=== PATIENT | male | born 1970 | race African-American/Black ===

== ENCOUNTER 2019-05-27 15:48 | Inpatient (IN) | payer OTHER ==
[2019-05-27 17:10] VITALS: BMI 36.4
--- NOTE | 2019-05-27 20:17 | HP ---
COWS - Scale Resting Pulse: 1= [place] 81-100 Sweatin= Chills/Flushing Restless Observation: 0= Sits Still Pupil Size: 0= Normal to Room Light Bone or Joint Aches: 1= Mild Discomfort Runny Nose/ Eye Tearin= Runny Nose/Eyes GI Upset > 30mins: 0= None Tremor Observation: 2= Slight Tremor Visible Yawning Observation: 1= 1-2x During Session Anxiety or Irritability: 2=Irritable/Anxious Goose Flesh Skin: 3=Piloerection COWS Score: 13 CIWA Score - Admission Criteria [facility] Guidelines: Admission for Medically Managed Detox: Requires at least one of the followin. CIWA greater than 12 2. Seizures within the past 24 hours 3. Delirium tremens within the past 24 hours 4. Hallucinations within the past 24 hours 5. Acute intervention needed for co occurring medical disorder 6. Acute intervention needed for co occurring psychiatric disorder 7. Severe withdrawal that cannot be handled at a lower level of care (continued vomiting, continued diarrhea, abnormal vital signs) requiring intravenous medication and/or fluids 8. Admission ROS [facility] - [facility] Chief Complaint: here for heroin detox Allergies/Adverse Reactions: Allergies Allergy/AdvReac Type Severity Reaction Status Date / Time Penicillins AdvReac Severe Swelling Verified 05/27/19 16:52 History of Present Illness: y.o. a.a. male here for heroin detox. client is referred by [facility] after presenting there seeking detox. This is clients first admission here. states last detox 3 months ago. relapsing 1 month ago. he reports daily heroin use via nasal. last use 1 day ago. denies hx/o drug overdose, black outs , sz d/o. homeless, unemployed, denies legals Exam Limitations: No Limitations - Ebola screening Have you traveled outside of the country in the last 21 days: No (N) Have you had contact with anyone from an Ebola affected area: No Do you have a fever: No - Review of Systems Constitutional: Chills, Night Sweats EENT: reports: Dental Problems (missing teeth), Other (rinorrhea) Respiratory: reports: Shortness of Breath Cardiac: reports: Edema (lle) GI: reports: No Symptoms Reported : reports: No Symptoms Reported Musculoskeletal: reports: Back Pain Integumentary: reports: Dryness Neuro: reports: Headache, Numbness (ble) Endocrine: reports: No Symptoms Reported Hematology: reports: No Symptoms Reported Psychiatric: reports: Orientated x3, Anxious, Depressed (denies si) Other Systems: Reviewed and Negative Patient History - Patient Medical History Hx Anemia: No Hx Asthma: No Hx Chronic Obstructive Pulmonary Disease (COPD): No Hx Cancer: No Hx Cardiac Disorders: No Hx Congestive Heart Failure: No Hx Hypertension: No Hx Hypercholesterolemia: Yes (no meds) Hx Pacemaker: No HX Cerebrovascular Accident: No Hx Seizures: No Hx Dementia: No Hx Diabetes: No Hx Gastrointestinal Disorders: No Hx Liver Disease: No Hx Genitourinary Disorders: No Hx Sexually Transmitted Disorders: No Hx Renal Disease (ESRD): No Hx Thyroid Disease: No Hx Human Immunodeficiency Virus (HIV): No Hx Hepatitis C: No Hx Depression: Yes Hx Suicide Attempt: No Hx Bipolar Disorder: No Hx Schizophrenia: No Other Medical History: denies - Patient Surgical History Past Surgical History: No - PPD History Previous Implant?: Yes Documented Results: Negative w/o proof Implanted On Prior [facility] Admission?: No PPD to be Administered?: Yes - Smoking Cessation Smoking history: Never smoked Initiated information on smoking cessation: No - Substance & Tx. History Hx Substance Use: Yes Substance Use Type: Heroin Hx Substance Use Treatment: Yes (elev 8) - Substances abused Heroin Substance route: Inhalation Frequency: Daily Amount used: 5 bags Age of first use: 28 Date of last use: 05/26/19 Admission Physical Exam BHS - Vital Signs Vital Signs: Vital Signs - 24 hr 05/27/19 05/27/19 16:46 17:30 Temperature 98.2 F 98.2 F Pulse Rate 81 81 Respiratory 18 18 Rate Blood Pressure 112/73 112/73 - Physical General Appearance: Yes: Mild Distress, Tremorous (felt), Anxious HEENTM: Yes: EOMI, Normocephalic, Normal Voice, KRISTI, Pharynx Normal, Other ( poor dentition) Respiratory: Yes: Chest Non-Tender, Lungs Clear, Normal Breath Sounds, No Respiratory Distress, No Accessory Muscle Use Neck: Yes: No masses,lesions,Nodules, Supple, Trachea in good position Breast: Yes: Breasts Symetrical Cardiology: Yes: Regular Rhythm, Regular Rate, S1, S2, Murmur Genitourinary: Yes: Within Normal Limits Back: Yes: Normal Inspection Musculoskeletal: Yes: full range of Motion, Gait Steady Extremities: Yes: Normal Range of Motion, Non-Tender, Tremors (felt) Neurological: Yes: Fully Oriented, Alert, Motor Strength 5/5, Depressed Affect Integumentary: Yes: Dry, Warm, Pitting Edema, Other (soles of feet noted with macerated skin to rle and peeling to the lle. no openings noted. toes swollen from excessive standing/walking non tender, malodurous) Lymphatic: Yes: Within Normal Limits (bilat lle edema l >r) - Diagnostic (1) Opioid dependence with withdrawal Current Visit: Yes Status: Acute (2) Tinea pedis Current Visit: Yes Status: Acute Qualifiers: Laterality: bilateral Qualified Code(s): B35.3 - Tinea pedis (3) Bilateral lower extremity edema Current Visit: Yes Status: Chronic Comment: left greater than right- chronic (4) Homeless Current Visit: Yes Status: Suspected Comment: reported Cleared for Admission [facility] - Detox or Rehab [facility] Level of Care: Medically Managed Detox Regimen/Protocol: Methadone Claeared for Rehab Admission: No Breathalyzer - Breathalyzer Breathalyzer: 0 Urine Drug Screen - Test Device Lot number: [id number] Expiration date: 01/14/21 - Control Is test valid?: Yes - Results Drug screen NEGATIVE: No Urine drug screen results: FEN-Fentanyl, MOP-Opiates Inpatient Rehab Admission - Rehab Decision to Admit Inpatient rehab admission?: No
[2019-05-27] MEDS ORDERED: METHADONE HCL 10 MG TABLET (FOR DETOX USE ONLY) PO ONE (21:11)
[2019-05-27] MEDS ORDERED: MAGNESIUM HYDROX 2400MG/30ML ORAL SUSPENSION 30 ML CUP PO PRN (21:11)
[2019-05-27] MEDS ORDERED: hydrOXYzine PAMOATE 25 MG CAPSULE (FP) PO PRN (21:11)
[2019-05-27] MEDS ORDERED: NALOXONE HCL 0.4 MG/ML VIAL IM PRN (21:11)
[2019-05-27] MEDS ORDERED: IBUPROFEN 400 MG TABLET (FP) PO PRN (21:11)
[2019-05-27] MEDS ORDERED: ACETAMINOPHEN 325 MG TABLET (FP) PO PRN ×2 (21:11)
[2019-05-27] MEDS ORDERED: MAGNESIUM CITRATE 300 ML BOTTLE PO PRN (21:11)
[2019-05-27] MEDS ORDERED: DICYCLOMINE HCL 10 MG CAPSULE PO PRN (21:11)
[2019-05-27] MEDS ORDERED: BISMUTH SUBSALICYLATE 524 MG/30 ML UD PO PRN (21:11)
[2019-05-27] MEDS ORDERED: cloNIDine HCL 0.1 MG TABLET PO PRN (21:11)
[2019-05-27] MEDS ORDERED: guaiFENesin 200 MG/10 ML 10 ML UNIT-DOSE CUPS PO PRN (21:11)
[2019-05-27] MEDS ORDERED: MENTHOL/PHENOL 1 EACH UD MM PRN (21:11)
[2019-05-27] MEDS ORDERED: MAG HYDROX/AL HYDROX/SIMETH 30 ML UNIT-DOSE CUP PO PRN (21:11)
[2019-05-27] MEDS ORDERED: METHOCARBAMOL 500 MG TABLET PO PRN (21:11)
[2019-05-27] MEDS ORDERED: P-EPHED 60MG/TRIPROLIDI 2.5MG TABLET PO PRN (21:11)
[2019-05-27] MEDS ORDERED: ONDANSETRON *ODT* 4 MG TABLET SL PRN (21:11)
[2019-05-27] MEDS: THIAMINE HCL 100 MG TABLET (FP) PO SCH (21:45)
[2019-05-27] MEDS: TOLNAFTATE 1% CREAM 15 GM TUBE TP SCH (21:45)
[2019-05-28] MEDS ORDERED: METHADONE HCL 5 MG TABLET (FOR DETOX USE ONLY) ONE (08:21)
[2019-05-28] MEDS ORDERED: METHADONE HCL 10 MG TABLET (FOR DETOX USE ONLY) ONE (08:21)
--- NOTE | 2019-05-28 08:52 | CONSULT ---
[facility] Psychiatric Consult - Data Date of interview: 05/28/19 Admission source: [facility] Identifying data: Mr Hardin is a 49 years old single Black male, father of 4 children, unemployed receiving food stamp, homeless seeking detox treatment for opioid Substance Abuse History: Reports history of heroin use. Refer to addiction counselor's summary for further information Medical History: Significant for dyslipidemia. Psychiatric History: Denies history of previous psychiatric treatment Physical/Sexual Abuse/Trauma History: Denies history of abuse as a child or DV relationship as an adult Mental Status Exam - Mental Status Exam Alert and Oriented to: Time, Place, Person Cognitive Function: Fair Patient Appearance: Disheveled Mood: Anxious Affect: Appropriate Patient Behavior: Cooperative Speech Pattern: Clear Voice Loudness: Normal Thought Process: Intact, Goal Oriented Thought Disorder: Not Present Hallucinations: Denies Suicidal Ideation: Denies Homicidal Ideation: Denies Insight/Judgement: Poor Sleep: Well Appetite: Fair Muscle strength/Tone: Normal Gait/Station: Normal Psychiatric Findings - Problem List ([place] 1, 2,3) (1) Substance-induced anxiety disorder Current Visit: Yes Status: Acute (2) Opioid dependence with withdrawal Current Visit: Yes Status: Acute (3) Dyslipidemia Current Visit: Yes Status: Acute - Initial Treatment Plan Initial Treatment Plan: Continue inpatient detoxification
[2019-05-28] MEDS ORDERED: METHADONE (DETOX) 20 MG, METHADONE (DETOX) 5 MG PO ONE (10:00)
[2019-05-28 10:01] LABS: HEMATOCRIT 36.5 % (35.4-49); HEMOGLOBIN 12.2 GM/dL (11.7-16.9); MCH 29.7 pg (25.7-33.7); MCHC 33.4 g/dl (32.0-35.9); MEAN CELL VOLUME 88.9 fl (80-96); MEAN PLT VOLUME 7.6 fl (7.5-11.1); PLATELET COUNT 271 K/MM3 (134-434); RBC 4.11 M/mm3 (4.00-5.60); RDW 13.9 % (11.9-15.9); WHITE BLOOD COUNT 6.8 K/mm3 (4.0-10.0)
[2019-05-28] MEDS: TOLNAFTATE 1% CREAM 15 GM TUBE TP SCH ×2 (10:11→22:52)
[2019-05-28] MEDS: PRENATAL VITAMINS W/ FOLIC ACID TABLET (FP) PO SCH (10:12)
[2019-05-28 10:30] LABS: ALBUMIN 3.4 g/dl (3.4-5.0); BILIRUBIN,TOTAL 0.3 mg/dL (0.2-1); BLOOD UREA NITROGEN 13.7 mg/dL (7-18); CALCIUM 8.7 mg/dL (8.5-10.1); POTASSIUM 3.9 mmol/L (3.5-5.1); TOT PROT 6.7 g/dl (6.4-8.2)
--- NOTE | 2019-05-28 13:31 | PN ---
BHS COWS - Scale Resting Pulse: 0= [place] 80 or Below Sweatin= Chills/Flushing Restless Observation: 0= Sits Still Pupil Size: 1= Pupils >than Normal Bone or Joint Aches: 1= Mild Discomfort Runny Nose/ Eye Tearin= None GI Upset > 30mins: 2= Nausea/Diarrhea Tremor Observation of Outstretched Hands: 2= Slight Tremor Visible Yawning Observation: 0= None Anxiety or Irritability: 1=Feels Anxious/Irritable Goose Flesh Skin: 3=Piloerection COWS Score: 11 S Progress Note (SOAP) Subjective: 49 years old male admitted on 05/27/19 for opiate withdrawal sx management treating with methadone detox regimen ate breakfast resting on bed limited conversation with the staff feeling tired encourage oral fluid Objective: 05/28/19 13:28 Vital Signs Temperature 99.1 F 05/28/19 13:10 Pulse Rate 79 05/28/19 13:10 Respiratory Rate 18 05/28/19 13:10 Blood Pressure 115/70 05/28/19 13:10 O2 Sat by Pulse Oximetry (%) Laboratory Last Values WBC 6.8 K/mm3 (4.0-10.0) 05/28/19 08:00 RBC 4.11 M/mm3 (4.00-5.60) 05/28/19 08:00 Hgb 12.2 GM/dL (11.7-16.9) 05/28/19 08:00 Hct 36.5 % (35.4-49) 05/28/19 08:00 MCV 88.9 fl (80-96) 05/28/19 08:00 MCH 29.7 pg (25.7-33.7) 05/28/19 08:00 MCHC 33.4 g/dl (32.0-35.9) 05/28/19 08:00 RDW 13.9 % (11.9-15.9) 05/28/19 08:00 Plt Count 271 K/MM3 (134-434) 05/28/19 08:00 MPV 7.6 fl (7.5-11.1) 05/28/19 08:00 Sodium 141 mmol/L (136-145) 05/28/19 08:00 Potassium 3.9 mmol/L (3.5-5.1) 05/28/19 08:00 Chloride 105 mmol/L (98-107) 05/28/19 08:00 Carbon Dioxide 29 mmol/L (21-32) 05/28/19 08:00 Anion Gap 6 MMOL/L (8-16) L 05/28/19 08:00 BUN 13.7 mg/dL (7-18) 05/28/19 08:00 Creatinine 1.0 mg/dL (0.55-1.3) 05/28/19 08:00 Est GFR (CKD-EPI)AfAm 100.55 05/28/19 08:00 Est GFR (CKD-EPI)NonAf 86.76 05/28/19 08:00 Random Glucose 101 mg/dL (74-106) 05/28/19 08:00 Calcium 8.7 mg/dL (8.5-10.1) 05/28/19 08:00 Total Bilirubin 0.3 mg/dL (0.2-1) 05/28/19 08:00 AST 36 U/L (15-37) 05/28/19 08:00 ALT 64 U/L (13-61) H 05/28/19 08:00 Alkaline Phosphatase 59 U/L (45-117) 05/28/19 08:00 Total Protein 6.7 g/dl (6.4-8.2) 05/28/19 08:00 Albumin 3.4 g/dl (3.4-5.0) 05/28/19 08:00 RPR Titer Nonreactive (NONREACTIVE) 05/28/19 08:00 lab noted Assessment: 05/28/19 13:31 opiate withdrawal Plan: methadone regimen
--- NOTE | 2019-05-28 14:46 | EKG ---
Test Reason : Blood Pressure : / mmHG Vent. Rate : 078 BPM Atrial Rate : 078 BPM P-R Int : 160 ms QRS Dur : 082 ms QT Int : 354 ms P-R-T Axes : 073 073 011 degrees QTc Int : 403 ms POOR DATA QUALITY, INTERPRETATION MAY BE ADVERSELY AFFECTED NORMAL SINUS RHYTHM POSSIBLE LEFT ATRIAL ENLARGEMENT LEFT VENTRICULAR HYPERTROPHY ABNORMAL ECG NO PREVIOUS ECGS AVAILABLE Confirmed by FAUSTINO MALONEY, DOMINIC ([id number]) on 05/28/2019 2:46:24 PM Referred By: NAKUL Confirmed By:DOMINIC HARMON MD
--- NOTE | 2019-05-28 14:46 | EKG ---
Test Reason : Blood Pressure : / mmHG Vent. Rate : 072 BPM Atrial Rate : 072 BPM P-R Int : 168 ms QRS Dur : 082 ms QT Int : 366 ms P-R-T Axes : 067 064 012 degrees QTc Int : 400 ms NORMAL SINUS RHYTHM NORMAL ECG WHEN COMPARED WITH ECG OF 27-MAY-2019 22:14, NO SIGNIFICANT CHANGE WAS FOUND Confirmed by DOMINIC HARMON MD ([id number]) on 05/28/2019 2:45:51 PM Referred By: RIN Confirmed By:DOMINIC HARMON MD
[2019-05-28] MEDS: THIAMINE HCL 100 MG TABLET (FP) PO SCH (22:53)
[2019-05-29] MEDS ORDERED: METHADONE HCL 10 MG TABLET (FOR DETOX USE ONLY) PO ONE (10:00)
[2019-05-29] MEDS: PRENATAL VITAMINS W/ FOLIC ACID TABLET (FP) PO SCH (10:19)
[2019-05-29] MEDS: TOLNAFTATE 1% CREAM 15 GM TUBE TP SCH ×2 (10:20→23:05)
--- NOTE | 2019-05-29 12:00 | PN ---
BHS COWS - Scale Resting Pulse: 0= [place] 80 or Below Sweatin= No chills or Flushing Restless Observation: 1= Difficult to Sit Still Pupil Size: 1= Pupils >than Normal Bone or Joint Aches: 1= Mild Discomfort Runny Nose/ Eye Tearin= Nasal Congestion GI Upset > 30mins: 1= Stomach Cramp Tremor Observation of Outstretched Hands: 2= Slight Tremor Visible Yawning Observation: 1= 1-2x During Session Anxiety or Irritability: 2=Irritable/Anxious Goose Flesh Skin: 0=Smooth Skin COWS Score: 10 BHS Progress Note (SOAP) Subjective: alert,irritable,anxious,pain in the body,back,interrupted sleep, Objective: 05/29/19 11:58 Vital Signs Temperature 99.1 F 05/29/19 09:11 Pulse Rate 79 05/29/19 09:11 Respiratory Rate 20 05/29/19 09:11 Blood Pressure 135/79 05/29/19 09:11 O2 Sat by Pulse Oximetry (%) Laboratory Last Values WBC 6.8 K/mm3 (4.0-10.0) 05/28/19 08:00 RBC 4.11 M/mm3 (4.00-5.60) 05/28/19 08:00 Hgb 12.2 GM/dL (11.7-16.9) 05/28/19 08:00 Hct 36.5 % (35.4-49) 05/28/19 08:00 MCV 88.9 fl (80-96) 05/28/19 08:00 MCH 29.7 pg (25.7-33.7) 05/28/19 08:00 MCHC 33.4 g/dl (32.0-35.9) 05/28/19 08:00 RDW 13.9 % (11.9-15.9) 05/28/19 08:00 Plt Count 271 K/MM3 (134-434) 05/28/19 08:00 MPV 7.6 fl (7.5-11.1) 05/28/19 08:00 Sodium 141 mmol/L (136-145) 05/28/19 08:00 Potassium 3.9 mmol/L (3.5-5.1) 05/28/19 08:00 Chloride 105 mmol/L (98-107) 05/28/19 08:00 Carbon Dioxide 29 mmol/L (21-32) 05/28/19 08:00 Anion Gap 6 MMOL/L (8-16) L 05/28/19 08:00 BUN 13.7 mg/dL (7-18) 05/28/19 08:00 Creatinine 1.0 mg/dL (0.55-1.3) 05/28/19 08:00 Est GFR (CKD-EPI)AfAm 100.55 05/28/19 08:00 Est GFR (CKD-EPI)NonAf 86.76 05/28/19 08:00 Random Glucose 101 mg/dL (74-106) 05/28/19 08:00 Calcium 8.7 mg/dL (8.5-10.1) 05/28/19 08:00 Total Bilirubin 0.3 mg/dL (0.2-1) 05/28/19 08:00 AST 36 U/L (15-37) 05/28/19 08:00 ALT 64 U/L (13-61) H 05/28/19 08:00 Alkaline Phosphatase 59 U/L (45-117) 05/28/19 08:00 Total Protein 6.7 g/dl (6.4-8.2) 05/28/19 08:00 Albumin 3.4 g/dl (3.4-5.0) 05/28/19 08:00 RPR Titer Nonreactive (NONREACTIVE) 05/28/19 08:00 Assessment: 05/29/19 11:59 withdrawal symptom Plan: continue detox methadone regimen
[2019-05-29] MEDS ORDERED: PROCHLORPERAZINE MALEATE 5 MG TABLET PO PRN (19:51)
[2019-05-29] MEDS: THIAMINE HCL 100 MG TABLET (FP) PO SCH (23:05)
[2019-05-30] MEDS ORDERED: METHADONE HCL 10 MG TABLET (FOR DETOX USE ONLY) ONE (08:47)
[2019-05-30] MEDS ORDERED: METHADONE HCL 5 MG TABLET (FOR DETOX USE ONLY) ONE (08:48)
[2019-05-30] MEDS: TOLNAFTATE 1% CREAM 15 GM TUBE TP SCH ×2 (09:16→22:47)
[2019-05-30] MEDS: PRENATAL VITAMINS W/ FOLIC ACID TABLET (FP) PO SCH (09:16)
[2019-05-30] MEDS ORDERED: METHADONE (DETOX) 10 MG, METHADONE (DETOX) 5 MG PO ONE (10:00)
--- NOTE | 2019-05-30 10:46 | PN ---
BHS COWS - Scale Resting Pulse: 0= [place] 80 or Below Sweatin= Beads of Sweat on Face Restless Observation: 1= Difficult to Sit Still Pupil Size: 0= Normal to Room Light Bone or Joint Aches: 2= Severe Diffuse Aches Runny Nose/ Eye Tearin= None GI Upset > 30mins: 0= None Tremor Observation of Outstretched Hands: 0= None Yawning Observation: 1= 1-2x During Session Anxiety or Irritability: 2=Irritable/Anxious Goose Flesh Skin: 0=Smooth Skin COWS Score: 9 S Progress Note (SOAP) Subjective: c/o sweats, muscle aches, anxiety and irritability. Objective: 05/30/19 10:46 Vital Signs 05/30/19 05/30/19 05/30/19 03:30 06:01 09:08 Temperature 98.7 F 99.5 F Pulse Rate 65 73 Respiratory 18 18 18 Rate Blood Pressure 136/78 165/84 Laboratory Last Values WBC 6.8 K/mm3 (4.0-10.0) 05/28/19 08:00 RBC 4.11 M/mm3 (4.00-5.60) 05/28/19 08:00 Hgb 12.2 GM/dL (11.7-16.9) 05/28/19 08:00 Hct 36.5 % (35.4-49) 05/28/19 08:00 MCV 88.9 fl (80-96) 05/28/19 08:00 MCH 29.7 pg (25.7-33.7) 05/28/19 08:00 MCHC 33.4 g/dl (32.0-35.9) 05/28/19 08:00 RDW 13.9 % (11.9-15.9) 05/28/19 08:00 Plt Count 271 K/MM3 (134-434) 05/28/19 08:00 MPV 7.6 fl (7.5-11.1) 05/28/19 08:00 Sodium 141 mmol/L (136-145) 05/28/19 08:00 Potassium 3.9 mmol/L (3.5-5.1) 05/28/19 08:00 Chloride 105 mmol/L (98-107) 05/28/19 08:00 Carbon Dioxide 29 mmol/L (21-32) 05/28/19 08:00 Anion Gap 6 MMOL/L (8-16) L 05/28/19 08:00 BUN 13.7 mg/dL (7-18) 05/28/19 08:00 Creatinine 1.0 mg/dL (0.55-1.3) 05/28/19 08:00 Est GFR (CKD-EPI)AfAm 100.55 05/28/19 08:00 Est GFR (CKD-EPI)NonAf 86.76 05/28/19 08:00 Random Glucose 101 mg/dL (74-106) 05/28/19 08:00 Calcium 8.7 mg/dL (8.5-10.1) 05/28/19 08:00 Total Bilirubin 0.3 mg/dL (0.2-1) 05/28/19 08:00 AST 36 U/L (15-37) 05/28/19 08:00 ALT 64 U/L (13-61) H 05/28/19 08:00 Alkaline Phosphatase 59 U/L (45-117) 05/28/19 08:00 Total Protein 6.7 g/dl (6.4-8.2) 05/28/19 08:00 Albumin 3.4 g/dl (3.4-5.0) 05/28/19 08:00 RPR Titer Nonreactive (NONREACTIVE) 05/28/19 08:00 Labs noted. Assessment: 05/30/19 10:46 AOX3, in no acute respiratory distress. Full ROM, ambulating in the unit. Withdrawal symptoms. Plan: continue detox.
[2019-05-30 20:25] LABS: URINE APPEARANCE TURBID; URINE BILIRUBIN NEGATIVE (NEGATIVE); URINE COLOR YELLOW; URINE GLUCOSE (UA) NEGATIVE (NEGATIVE); URINE KETONE NEGATIVE (NEGATIVE); URINE LEUK ESTERASE NEGATIVE (NEGATIVE); URINE NITRITE NEGATIVE (NEGATIVE); URINE PROTEIN NEGATIVE (NEGATIVE); URINE UROBILINOGEN 0.2 mg/dL (0.2-1.0)
[2019-05-30] MEDS: MELATONIN 5 MG TABLETS PO PRN (22:46)
[2019-05-30] MEDS: THIAMINE HCL 100 MG TABLET (FP) PO SCH (22:47)
[2019-05-31] MEDS ORDERED: METHADONE HCL 10 MG TABLET (FOR DETOX USE ONLY) PO ONE (10:00)
[2019-05-31] MEDS: PRENATAL VITAMINS W/ FOLIC ACID TABLET (FP) PO SCH (10:11)
[2019-05-31] MEDS: TOLNAFTATE 1% CREAM 15 GM TUBE TP SCH ×2 (10:12→22:59)
[2019-05-31] MEDS ORDERED: ACETAMINOPHEN 325 MG TABLET (FP) PO ONE (13:03)
--- NOTE | 2019-05-31 13:05 | PN ---
BHS COWS - Scale Resting Pulse: 0= [place] 80 or Below Sweatin= Chills/Flushing Restless Observation: 0= Sits Still Pupil Size: 0= Normal to Room Light Bone or Joint Aches: 1= Mild Discomfort Runny Nose/ Eye Tearin= None GI Upset > 30mins: 1= Stomach Cramp Tremor Observation of Outstretched Hands: 1= Tremor [place], Not Seen Yawning Observation: 0= None Anxiety or Irritability: 1=Feels Anxious/Irritable Goose Flesh Skin: 0=Smooth Skin COWS Score: 5 BHS Progress Note (SOAP) Subjective: 49 years old male admitted on 05/27/19 for opiate withdrawal sx management treating with methadone detox regimen feeling better today less body ache ambulating on hallway social with peers after breakfast low grade temp tylenal 650 mg po x 1 no coughing denies urinary trouble 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 Objective: 05/31/19 13:07 Vital Signs Temperature 96.9 F L 05/31/19 13:03 Pulse Rate 61 05/31/19 13:03 Respiratory Rate 18 05/31/19 13:03 Blood Pressure 142/86 05/31/19 13:03 O2 Sat by Pulse Oximetry (%) Laboratory Last Values WBC 6.8 K/mm3 (4.0-10.0) 05/28/19 08:00 RBC 4.11 M/mm3 (4.00-5.60) 05/28/19 08:00 Hgb 12.2 GM/dL (11.7-16.9) 05/28/19 08:00 Hct 36.5 % (35.4-49) 05/28/19 08:00 MCV 88.9 fl (80-96) 05/28/19 08:00 MCH 29.7 pg (25.7-33.7) 05/28/19 08:00 MCHC 33.4 g/dl (32.0-35.9) 05/28/19 08:00 RDW 13.9 % (11.9-15.9) 05/28/19 08:00 Plt Count 271 K/MM3 (134-434) 05/28/19 08:00 MPV 7.6 fl (7.5-11.1) 05/28/19 08:00 Sodium 141 mmol/L (136-145) 05/28/19 08:00 Potassium 3.9 mmol/L (3.5-5.1) 05/28/19 08:00 Chloride 105 mmol/L (98-107) 05/28/19 08:00 Carbon Dioxide 29 mmol/L (21-32) 05/28/19 08:00 Anion Gap 6 MMOL/L (8-16) L 05/28/19 08:00 BUN 13.7 mg/dL (7-18) 05/28/19 08:00 Creatinine 1.0 mg/dL (0.55-1.3) 05/28/19 08:00 Est GFR (CKD-EPI)AfAm 100.55 05/28/19 08:00 Est GFR (CKD-EPI)NonAf 86.76 05/28/19 08:00 Random Glucose 101 mg/dL (74-106) 05/28/19 08:00 Calcium 8.7 mg/dL (8.5-10.1) 05/28/19 08:00 Total Bilirubin 0.3 mg/dL (0.2-1) 05/28/19 08:00 AST 36 U/L (15-37) 05/28/19 08:00 ALT 64 U/L (13-61) H 05/28/19 08:00 Alkaline Phosphatase 59 U/L (45-117) 05/28/19 08:00 Total Protein 6.7 g/dl (6.4-8.2) 05/28/19 08:00 Albumin 3.4 g/dl (3.4-5.0) 05/28/19 08:00 Urine Color Yellow 05/30/19 13:01 Urine Appearance Turbid 05/30/19 13:01 Urine pH 5.0 (5.0-8.0) 05/30/19 13:01 Ur Specific [place] 1.022 (1.010-1.035) 05/30/19 13:01 Urine Protein Negative (NEGATIVE) 05/30/19 13:01 Urine Glucose (UA) Negative (NEGATIVE) 05/30/19 13:01 Urine Ketones Negative (NEGATIVE) 05/30/19 13:01 Urine Blood Negative (NEGATIVE) 05/30/19 13:01 Urine Nitrite Negative (NEGATIVE) 05/30/19 13:01 Urine Bilirubin Negative (NEGATIVE) 05/30/19 13:01 Urine Urobilinogen 0.2 mg/dL (0.2-1.0) 05/30/19 13:01 Ur Leukocyte Esterase Negative (NEGATIVE) 05/30/19 13:01 RPR Titer Nonreactive (NONREACTIVE) 05/28/19 08:00 lab noted Assessment: 05/31/19 13:09 opiate withdrawal sx discuss medication assisted treatment program Plan: methadone regimen
--- NOTE | 2019-05-31 20:20 | PN ---
S Progress Note Note: Patient w/ elevated temp. C/o being achy earlier which resided after earlier acetaminophen. Vital Signs 05/31/19 05/31/19 05/31/19 13:03 17:16 19:54 Temperature 96.9 F L 100.1 F H 100.8 F H Pulse Rate 61 68 Respiratory 18 16 Rate Blood Pressure 142/86 129/77 05/31/19 19:57 Temperature 100.8 F H Pulse Rate 70 Respiratory 18 Rate Blood Pressure 124/69 Laboratory Last Values WBC 6.8 K/mm3 (4.0-10.0) 05/28/19 08:00 RBC 4.11 M/mm3 (4.00-5.60) 05/28/19 08:00 Hgb 12.2 GM/dL (11.7-16.9) 05/28/19 08:00 Hct 36.5 % (35.4-49) 05/28/19 08:00 MCV 88.9 fl (80-96) 05/28/19 08:00 MCH 29.7 pg (25.7-33.7) 05/28/19 08:00 MCHC 33.4 g/dl (32.0-35.9) 05/28/19 08:00 RDW 13.9 % (11.9-15.9) 05/28/19 08:00 Plt Count 271 K/MM3 (134-434) 05/28/19 08:00 MPV 7.6 fl (7.5-11.1) 05/28/19 08:00 Sodium 141 mmol/L (136-145) 05/28/19 08:00 Potassium 3.9 mmol/L (3.5-5.1) 05/28/19 08:00 Chloride 105 mmol/L (98-107) 05/28/19 08:00 Carbon Dioxide 29 mmol/L (21-32) 05/28/19 08:00 Anion Gap 6 MMOL/L (8-16) L 05/28/19 08:00 BUN 13.7 mg/dL (7-18) 05/28/19 08:00 Creatinine 1.0 mg/dL (0.55-1.3) 05/28/19 08:00 Est GFR (CKD-EPI)AfAm 100.55 05/28/19 08:00 Est GFR (CKD-EPI)NonAf 86.76 05/28/19 08:00 Random Glucose 101 mg/dL (74-106) 05/28/19 08:00 Calcium 8.7 mg/dL (8.5-10.1) 05/28/19 08:00 Total Bilirubin 0.3 mg/dL (0.2-1) 05/28/19 08:00 AST 36 U/L (15-37) 05/28/19 08:00 ALT 64 U/L (13-61) H 05/28/19 08:00 Alkaline Phosphatase 59 U/L (45-117) 05/28/19 08:00 Total Protein 6.7 g/dl (6.4-8.2) 05/28/19 08:00 Albumin 3.4 g/dl (3.4-5.0) 05/28/19 08:00 Urine Color Yellow 05/30/19 13:01 Urine Appearance Turbid 05/30/19 13:01 Urine pH 5.0 (5.0-8.0) 05/30/19 13:01 Ur Specific [place] 1.022 (1.010-1.035) 05/30/19 13:01 Urine Protein Negative (NEGATIVE) 05/30/19 13:01 Urine Glucose (UA) Negative (NEGATIVE) 05/30/19 13:01 Urine Ketones Negative (NEGATIVE) 05/30/19 13:01 Urine Blood Negative (NEGATIVE) 05/30/19 13:01 Urine Nitrite Negative (NEGATIVE) 05/30/19 13:01 Urine Bilirubin Negative (NEGATIVE) 05/30/19 13:01 Urine Urobilinogen 0.2 mg/dL (0.2-1.0) 05/30/19 13:01 Ur Leukocyte Esterase Negative (NEGATIVE) 05/30/19 13:01 RPR Titer Nonreactive (NONREACTIVE) 05/28/19 08:00 Assess: Alert and oriented. Denies CP/SOB. No nasal congestion. Throat w/o lesions or exudate. Lungs CTA. Pulse Ox = 97 % Abd soft, non-tender. Plan: Encouraged increased water intake. Monitor V/S. Alternate acetaminophen w/ ibuprofen for temperature management.
[2019-05-31] MEDS ORDERED: amLODIPine BESYLATE 5 MG TABLET (FP) PO SCH (22:00)
[2019-05-31] MEDS: MELATONIN 5 MG TABLETS PO PRN (22:59)
[2019-05-31] MEDS: THIAMINE HCL 100 MG TABLET (FP) PO SCH (22:59)
[2019-06-01] MEDS ORDERED: METHADONE HCL 5 MG TABLET (FOR DETOX USE ONLY) PO ONE (06:00)
[2019-06-01 09:15] VITALS: BP 131/74; PULSE 68; TEMP 99.1
--- NOTE | 2019-06-01 14:16 | DS ---
[facility] Detox Discharge Summary Admission Date: 05/27/19 Discharge Date: 06/01/19 - History Present History: Opioid Dependence Additional Comments: 49 years old male admitted on 05/27/19 for opiate withdrawal sx management treated with methadone detox regimen patient tolerated well alert oriented x 3 appears no acute distress ambulating steady gait speech clearly coherently cardiac [id number] regular rate rhythm respiratory clear lung bilaterally on auscultation skin warm and dry Pertinent Past History: patient is going to [facility] and agrees to follow up with [facility] service - Physical Exam Results Vital Signs: Vital Signs Temperature 99.1 F 06/01/19 09:14 Pulse Rate 68 06/01/19 09:14 Respiratory Rate 20 06/01/19 09:14 Blood Pressure 131/74 06/01/19 09:14 O2 Sat by Pulse Oximetry (%) Pertinent Admission Physical Exam Findings: opiate withdrawal sx Laboratory Last Values WBC 6.8 K/mm3 (4.0-10.0) 05/28/19 08:00 RBC 4.11 M/mm3 (4.00-5.60) 05/28/19 08:00 Hgb 12.2 GM/dL (11.7-16.9) 05/28/19 08:00 Hct 36.5 % (35.4-49) 05/28/19 08:00 MCV 88.9 fl (80-96) 05/28/19 08:00 MCH 29.7 pg (25.7-33.7) 05/28/19 08:00 MCHC 33.4 g/dl (32.0-35.9) 05/28/19 08:00 RDW 13.9 % (11.9-15.9) 05/28/19 08:00 Plt Count 271 K/MM3 (134-434) 05/28/19 08:00 MPV 7.6 fl (7.5-11.1) 05/28/19 08:00 Sodium 141 mmol/L (136-145) 05/28/19 08:00 Potassium 3.9 mmol/L (3.5-5.1) 05/28/19 08:00 Chloride 105 mmol/L (98-107) 05/28/19 08:00 Carbon Dioxide 29 mmol/L (21-32) 05/28/19 08:00 Anion Gap 6 MMOL/L (8-16) L 05/28/19 08:00 BUN 13.7 mg/dL (7-18) 05/28/19 08:00 Creatinine 1.0 mg/dL (0.55-1.3) 05/28/19 08:00 Est GFR (CKD-EPI)AfAm 100.55 05/28/19 08:00 Est GFR (CKD-EPI)NonAf 86.76 05/28/19 08:00 Random Glucose 101 mg/dL (74-106) 05/28/19 08:00 Calcium 8.7 mg/dL (8.5-10.1) 05/28/19 08:00 Total Bilirubin 0.3 mg/dL (0.2-1) 05/28/19 08:00 AST 36 U/L (15-37) 05/28/19 08:00 ALT 64 U/L (13-61) H 05/28/19 08:00 Alkaline Phosphatase 59 U/L (45-117) 05/28/19 08:00 Total Protein 6.7 g/dl (6.4-8.2) 05/28/19 08:00 Albumin 3.4 g/dl (3.4-5.0) 05/28/19 08:00 Urine Color Yellow 05/30/19 13:01 Urine Appearance Turbid 05/30/19 13:01 Urine pH 5.0 (5.0-8.0) 05/30/19 13:01 Ur Specific [place] 1.022 (1.010-1.035) 05/30/19 13:01 Urine Protein Negative (NEGATIVE) 05/30/19 13:01 Urine Glucose (UA) Negative (NEGATIVE) 05/30/19 13:01 Urine Ketones Negative (NEGATIVE) 05/30/19 13:01 Urine Blood Negative (NEGATIVE) 05/30/19 13:01 Urine Nitrite Negative (NEGATIVE) 05/30/19 13:01 Urine Bilirubin Negative (NEGATIVE) 05/30/19 13:01 Urine Urobilinogen 0.2 mg/dL (0.2-1.0) 05/30/19 13:01 Ur Leukocyte Esterase Negative (NEGATIVE) 05/30/19 13:01 RPR Titer Nonreactive (NONREACTIVE) 05/28/19 08:00 lab noted strong recommend the patient to consider medication assisted treatment program as well as picker packer narcan from pharmacy - Treatment Hospital Course: Detox Protocol Followed, Detoxed Safely, Responded well, Discharged Condition Good, Rehab Referral Accepted Patient has Accepted a Re[facility] Referral to: [facility] - Medication Discharge Medications: Ambulatory Orders Amlodipine Besylate [Norvasc -] 5 mg PO HS #14 tablet 05/31/19 Naloxone HCl [Narcan] 4 mg NS ASDIR PRN #1 spray 05/31/19 - Diagnosis (1) Hypertension Status: Chronic Qualifiers: Hypertension type: essential hypertension Qualified Code(s): I10 - Essential (primary) hypertension (2) Opioid dependence with withdrawal Status: Acute - AMA Did Patient Leave Against Medical Advice: No COWS (PN) - Opiate Withdrawal Resting Pulse: 0= [place] 80 or Below Sweatin= Chills/Flushing Restless Observation: 0= Sits Still Pupil Size: 0= Normal to Room Light Bone or Joint Aches: 0= None Runny Nose/ Eye Tearin= None GI Upset > 30mins: 0= None Tremor Observation of Outstretched Hands: 1= Tremor [place], Not Seen Yawning Observation: 0= None Anxiety or Irritability: 1=Feels Anxious/Irritable Goose Flesh Skin: 0=Smooth Skin COWS Score: 3
== END 2019-06-01 10:00 | disposition home or self-care (01) | DRG 773 ==
LOC: YASAS 15:48 → Y3N 20:42
PROVIDERS: ADMIT Allergy & Immunology; ATTEND Allergy & Immunology
PROC: HZ2ZZZZ Detoxification Services for Substance Abuse Treatment (ICD-10-PCS; principal; 2019-05-27)
DX: F11.23 Opioid dependence with withdrawal (principal); F19.280 Other psychoactive substance dependence with psychoactive substance-induced anxiety disorder; I10 Essential (primary) hypertension; E78.5 Hyperlipidemia, unspecified; R01.1 Cardiac murmur, unspecified; B35.3 Tinea pedis; R60.0 Localized edema; Z88.0 Allergy status to penicillin; Z59.0 Homelessness
CPT/HCPCS: 36415; 80053; 81003; 85027; 86593; 93005; 93010; Q0162